=== PATIENT | female | born 1975 | race African-American/Black ===

== ENCOUNTER 2016-11-09 19:52 | Emergency (ER) | payer MEDICARE, MEDICAID ==
[~2016-11-09] VITALS: Ht 172.7 cm; Wt 61.4 kg
[~2016-11-09 19:52] MED LIST: ADVIL200 MG PO; AMBIEN 10MG10 MG PO; AMBIEN5 MG PO; AMITRIPTYLINE H10 M1 PO; AMOXICILLIN 50500 MG PO; AMOXICILLIN875 MG PO; ANTIFUNGAL2% TP; ASMANEX TW0.22 MG/A1; ATARAX 25MG25 MG/TAB PO; ATIVAN 0.50.5 MG/TAB PO; ATIVAN 1MG T1 MG/TAB PO; BACITRACIN TOPIC1 TU TOP; CALTRATE-600 W600 MG PO; CARAFATE 1GM1 G PO; CARAFATE S1 GM/10 ML PO; CATAPRES 0.1MG0.1 MG PO; CEFTIN500 MG PO; CELEBREX 200MG200 MG PO; CHANTIX 1MG1 MG PO; CHANTIX STARTER1 TAB PO; CHANTIX1 MG PO; CIPRO 500MG TA500 MG PO; CLEOCIN HCL300 MG PO; COLACE 100100 MG/CAP PO; CYMBALTA 60MG60 MG PO; DILAUDID 2MG TAB2 MG PO; DILAUDID 4MG TAB4 MG PO; ESTROVEN PO; EXALGO8 MG PO; EXCEDRIN1 TAB PO; Estroven PO; FERROUS SULFAT325 MG PO; FLEXERIL 1010 MG/TAB PO; FLEXERIL10 MG PO; HCTZ12.5TAB PO; HYDROMORPHONE HY8 MG PO; IBU800 M1 PO; IRON325 M1 PO; KLOR-CON 1010 MEQ PO; LASIX 20MG TABL20 MG PO; LASIX 40MG TABL40 MG PO; LEVOTHYROXINE0.05 MG PO; LIORESAL 1010 MG/TAB PO; LORTAB 5/500 501 TAB PO; LYRICA; LYRICA 75MG CAP75 MG PO; LYRICA225 MG PO; MECLIZINE25 MG PO; MILLIPRED DP5 MG; MULTIPLE VITAMI1 TA3 PO; MULTIVITAMIN1 CTB PO; MVI; NAPROSYN500 MG PO; NEURONTIN300 MG/CAP PO; NEURONTIN600 MG/TAB PO; NICODERM C21 MG/PATC TOP; NO HOME MEDICATIONS; NORCO 325 MG-51 TAB PO; NUCENTA PO; OPANA ER10 MG PO; OPANA ER30 MG PO; OPANA ER5 MG PO; OPANA5 MG PO; OXYCODONE HCL40 MG PO; OXYCODONE HCL5 MG PO; OXYCONTIN 20MG20 MG PO; OXYCONTIN30 MG PO; PEN-VEE K500 MG PO; PERCOCET 325 MG1 TA2 PO; PERCOCET 325 MG1 TA3 PO; PERCOCET 325 MG1 TAB PO; PERCOCET 500 MG1 TAB PO; PHENERGAN 25 TA25 MG PO; PHENERGAN25 MG RC; PREDNISONE20 MG PO; PRILOSEC; PRILOSEC 20MG20 MG PO; PROAIR HFA0.09 MG/AC IH; PROMETHAZINE; PROMETHAZINE12.5 M5 PO; PROTONIX 40MG T40 MG PO; REGLAN 10MG10 MG/TAB PO; REMERON30 MG PO; ROXICODONE 55 MG/TAB PO; SYNTHROID0.075 MG/T PO; THERAGRAN1 TA1 PO; TRAMADOL; TRAMADOL50 MG PO; TYLENOL 325MG325 MG PO; ULTRAM 50MG TAB50 MG; ULTRAM 50MG TAB50 MG PO; ULTRAM100 MG PO; UNABLE; VICODIN 5/5001 UDTAB PO; VISTARIL 2525 MG/CAP PO; VITAMIN C BUFF500 MG PO; VITAMIN C500 MG PO; VITAMIN D1000 IU PO; ZANAFLEX 4MG TAB4 MG PO; ZOFRAN 4MG T4 MG/TAB PO; ZOFRAN ODT4 MG PO; ZOFRAN4 M1 PO; ZOFRAN8 MG PO; ZOLOFT 50MG50 MG PO; [UNRECOGNIZED DRUG - REMARK]; [UNRECOGNIZED DRUG - REMARK]
[2016-11-09 20:08] VITALS: BP 121/56; TEMP 98.9
[2016-11-09] MEDS ORDERED: MOBIC15 MG PO (22:04)
[2016-11-09 22:30] VITALS: PULSE 104
[2017-02-18] MEDS ORDERED: LASIX 20MG TABL20 MG PO (07:36)
[2017-02-18] MEDS ORDERED: FERRO-TIME325 MG PO (07:36)
[2017-02-18] MEDS ORDERED: K-DUR 10 MEQ T10 MEQ PO (07:37)
[2017-02-18] MEDS ORDERED: COUMADIN 5MG5 MG/TAB PO (07:39)
[2017-02-18] MEDS ORDERED: AMITRIPTYLINE H10 M1 PO (07:40)
[2017-02-18] MEDS ORDERED: PHENERGAN 25 TA25 MG PO (07:42)
[2017-02-18] MEDS ORDERED: OPANA ER10 MG PO (07:43)
== END 2016-11-09 22:30 | disposition home or self-care (01) ==
LOC: COL.ER 19:52
DX: G90.523 Complex regional pain syndrome I of lower limb, bilateral (principal)
CPT/HCPCS: J2550

== ENCOUNTER 2017-02-05 14:44 | Emergency (ER) | payer MEDICARE, MEDICAID ==
[~2017-02-05] VITALS: Ht 172.7 cm; Wt 56.7 kg
[~2017-02-05 14:44] MED LIST changes: +MOBIC15 MG PO
[2017-02-05 16:13] LABS: BASO # 0.1 (0.0-0.2); BASO % 0.4 % (0.0-2.0); EOS # 0.1 (0.0-0.7); EOS % 0.8 % (0-4.0); GRAN # 8.2 (1.4-6.5); GRAN % 69.8 % (42.2-75.2); LYMPH # 2.8 (1.2-3.4); LYMPH % 23.8 % (20.0-51.0); MEAN CELL VOLUME 80 fl (80.0-100.0); MEAN CORPUSCULAR HGB CONC 29 g/dl (33.0-37.0); MEAN PLATELET VOLUME 10.2 fl (7.4-10.4); MONO # 0.6 (0.1-0.6); MONO % 4.7 % (1.7-9.3); PLATELET COUNT 400 K/mm3 (130-400); RED BLOOD COUNT 3.73 M/mm3 (4.10-5.30); REDCELL DISTRIBUTION WIDTH-CV 21.1 % (11.5-14.5); WHITE BLOOD COUNT 11.7 K/mm3 (4.8-10.8)
[2017-02-05 16:20] LABS: HEMATOCRIT 29.9 % (37.0-47.0); HEMOGLOBIN 8.7 g/dl (12.5-16.0); MEAN CORPUSCULAR HEMOGLOBIN 23 pg (27.0-31.0)
[2017-02-05 16:27] LABS: ADJUSTED CALCIUM 9.1 mg/dL (8.4-10.2); ALANINE AMINOTRANSFERASE 118 U/L (9-52); ALBUMIN 3.6 gm/dL (3.5-5.0); ALKALINE PHOSPHATASE 677 U/L (50-136); ANION GAP 13 mmol/L (7-16); BILIRUBIN,TOTAL 0.7 mg/dL (0.0-1.0); BLOOD UREA NITROGEN 22 mg/dL (7-17); CALCIUM 8.8 mg/dL (8.4-10.2); CARBON DIOXIDE 21 mmol/L (22-30); CHLORIDE 99 mmol/L (98-107); GLUCOSE 126 mg/dL (74-106); SODIUM 133 mmol/L (137-145); TOTAL PROTEIN 8.5 gm/dL (6.4-8.2)
[2017-02-05 16:29] LABS: INR 1.1 (0.8-3.0); PROTHROMBIN TIME 11.8 SECONDS (9.7-12.8)
[2017-02-05 16:31] LABS: PARTIAL THROMBOPLASTIN TIME 27.5 SECONDS (26.0-37.0)
[2017-02-05 16:33] LABS: PH 5 (5-8); SQUAMOUS EPITHELIAL 0-2 /hpf; URINE APPEARANCE Clear; URINE BACTERIA Rare /hpf; URINE BILIRUBIN Negative (NEGATIVE); URINE BLOOD 3+ (NEGATIVE); URINE COLOR Straw; URINE GLUCOSE Negative (NEGATIVE); URINE KETONE Negative (NEGATIVE); URINE UROBILINOGEN Negative (NEGATIVE)
[2017-02-05 16:41] LABS: AMPHETAMINE URINE NEGATIVE; BARBITURATES URINE NEGATIVE; BENZODIAZEPINES URINE NEGATIVE; BUPRENORPHINE URINE NEGATIVE; METHADONE URINE NEGATIVE; OPIATES URINE NEGATIVE; OXYCODONE URINE POSITIVE; PHENCYCLIDINE URINE NEGATIVE; PROPOXYPHENE URINE NEGATIVE; THC CANNABINOIDS URINE NEGATIVE
[2017-02-05 16:56] VITALS: BP 103/65
[2017-02-05 17:00] LABS: ERYTHROCYTE SEDIMENTATION RATE > 140 mm/hr (0-20)
[2017-02-05 17:44] VITALS: PULSE 110; TEMP 97.9
[2017-02-18] MEDS ORDERED: FERRO-TIME325 MG PO (07:36)
[2017-02-18] MEDS ORDERED: LASIX 20MG TABL20 MG PO (07:36)
[2017-02-18] MEDS ORDERED: K-DUR 10 MEQ T10 MEQ PO (07:37)
[2017-02-18] MEDS ORDERED: COUMADIN 5MG5 MG/TAB PO (07:39)
[2017-02-18] MEDS ORDERED: AMITRIPTYLINE H10 M1 PO (07:40)
[2017-02-18] MEDS ORDERED: PHENERGAN 25 TA25 MG PO (07:42)
[2017-02-18] MEDS ORDERED: OPANA ER10 MG PO (07:43)
== END 2017-02-05 17:49 | disposition home or self-care (01) ==
LOC: COL.ER 14:44
PROVIDERS: Nurse Practitioner
DX: I77.6 Arteritis, unspecified (principal); Z53.21 Procedure and treatment not carried out due to patient leaving prior to being seen by health care provider; D69.2 Other nonthrombocytopenic purpura; F17.210 Nicotine dependence, cigarettes, uncomplicated
CPT/HCPCS: J1170; J7030

== ENCOUNTER 2017-02-11 10:07 | Emergency (ER) | payer MEDICARE, MEDICAID ==
[~2017-02-11] VITALS: Ht 172.7 cm; Wt 56.4 kg
[2017-02-11 11:16] LABS: BASO % 0.3 % (0.0-2.0); EOS # 0.1 (0.0-0.7); EOS % 0.8 % (0-4.0); GRAN # 9.1 (1.4-6.5); LYMPH # 2.5 (1.2-3.4); LYMPH % 20.1 % (20.0-51.0); MEAN CELL VOLUME 83 fl (80.0-100.0); MEAN CORPUSCULAR HGB CONC 29 g/dl (33.0-37.0); MEAN PLATELET VOLUME 9.2 fl (7.4-10.4); MONO # 0.7 (0.1-0.6); MONO % 5.2 % (1.7-9.3); PLATELET COUNT 397 K/mm3 (130-400); RED BLOOD COUNT 2.99 M/mm3 (4.10-5.30); REDCELL DISTRIBUTION WIDTH-CV 22.9 % (11.5-14.5); WHITE BLOOD COUNT 12.4 K/mm3 (4.8-10.8)
[2017-02-11 11:26] LABS: HEMATOCRIT 24.7 % (37.0-47.0); HEMOGLOBIN 7.1 g/dl (12.5-16.0); MEAN CORPUSCULAR HEMOGLOBIN 24 pg (27.0-31.0)
[2017-02-11 11:31] LABS: INR 1.2 (0.8-3.0); PROTHROMBIN TIME 13.3 SECONDS (9.7-12.8)
[2017-02-11 11:33] LABS: ADJUSTED CALCIUM 9.6 mg/dL (8.4-10.2); ALBUMIN 3.3 gm/dL (3.5-5.0); BILIRUBIN,TOTAL 0.6 mg/dL (0.0-1.0); CREATININE, serum 0.77 mg/dL (0.52-1.25); MAGNESIUM 1.5 mg/dL (1.6-2.3); PARTIAL THROMBOPLASTIN TIME 33.4 SECONDS (26.0-37.0); PHOSPHOROUS 5.5 mg/dL (2.5-4.5); POTASSIUM 3.9 mmol/L (3.4-5.0); TOTAL PROTEIN 8.1 gm/dL (6.4-8.2)
[2017-02-11 12:08] LABS: ERYTHROCYTE SEDIMENTATION RATE 37 mm/hr (0-20)
[2017-02-11 12:16] LABS: C-REACTIVE PROTEIN 19.5 mg/dL (0.0-0.9)
[2017-02-11 12:20] VITALS: BP 116/64; PULSE 132; TEMP 98.8
[2017-02-11 12:23] LABS: AMPHETAMINE URINE NEGATIVE; BARBITURATES URINE NEGATIVE; BENZODIAZEPINES URINE NEGATIVE; BUPRENORPHINE URINE NEGATIVE; METHADONE URINE NEGATIVE; OPIATES URINE NEGATIVE; OXYCODONE URINE POSITIVE; PHENCYCLIDINE URINE NEGATIVE; PROPOXYPHENE URINE NEGATIVE; THC CANNABINOIDS URINE NEGATIVE
[2017-02-11 13:32] LABS: URINE APPEARANCE Hazy; URINE COLOR Yellow
[2017-02-11 13:33] LABS: PH 5 (5-8); URINE BILIRUBIN Negative (NEGATIVE); URINE BLOOD 3+ (NEGATIVE); URINE GLUCOSE Negative (NEGATIVE); URINE KETONE Negative (NEGATIVE); URINE UROBILINOGEN Negative (NEGATIVE)
[2017-02-11 13:34] LABS: SQUAMOUS EPITHELIAL 0-2 /hpf; URINE BACTERIA Occasional /hpf
[2017-02-18] MEDS ORDERED: LASIX 20MG TABL20 MG PO (07:36)
[2017-02-18] MEDS ORDERED: FERRO-TIME325 MG PO (07:36)
[2017-02-18] MEDS ORDERED: K-DUR 10 MEQ T10 MEQ PO (07:37)
[2017-02-18] MEDS ORDERED: COUMADIN 5MG5 MG/TAB PO (07:39)
[2017-02-18] MEDS ORDERED: AMITRIPTYLINE H10 M1 PO (07:40)
[2017-02-18] MEDS ORDERED: PHENERGAN 25 TA25 MG PO (07:42)
[2017-02-18] MEDS ORDERED: OPANA ER10 MG PO (07:43)
== END 2017-02-11 12:24 | disposition left against medical advice (07) ==
LOC: COL.ER 10:07
PROVIDERS: Emergency Medicine
DX: I38 Endocarditis, valve unspecified (principal); Z53.21 Procedure and treatment not carried out due to patient leaving prior to being seen by health care provider; B96.89 Other specified bacterial agents as the cause of diseases classified elsewhere; L02.414 Cutaneous abscess of left upper limb; I77.6 Arteritis, unspecified; L02.413 Cutaneous abscess of right upper limb; R00.0 Tachycardia, unspecified; D64.9 Anemia, unspecified; G89.29 Other chronic pain
CPT/HCPCS: J2185; J7030

== ENCOUNTER 2017-02-11 14:31 | Emergency (ER) | payer MEDICARE, MEDICAID ==
[~2017-02-11] VITALS: Ht 172.7 cm; Wt 55.5 kg
[2017-02-11 14:35] VITALS: TEMP 98.8
[2017-02-11 16:36] VITALS: BP 120/71; PULSE 139
[2017-02-18] MEDS ORDERED: FERRO-TIME325 MG PO (07:36)
[2017-02-18] MEDS ORDERED: LASIX 20MG TABL20 MG PO (07:36)
[2017-02-18] MEDS ORDERED: K-DUR 10 MEQ T10 MEQ PO (07:37)
[2017-02-18] MEDS ORDERED: COUMADIN 5MG5 MG/TAB PO (07:39)
[2017-02-18] MEDS ORDERED: AMITRIPTYLINE H10 M1 PO (07:40)
[2017-02-18] MEDS ORDERED: PHENERGAN 25 TA25 MG PO (07:42)
[2017-02-18] MEDS ORDERED: OPANA ER10 MG PO (07:43)
== END 2017-02-11 16:45 | disposition short-term general hospital (02) ==
LOC: COL.ER 14:31
DX: R78.81 Bacteremia (principal); I77.6 Arteritis, unspecified; R00.0 Tachycardia, unspecified; G89.29 Other chronic pain
CPT/HCPCS: J7030

== ENCOUNTER 2017-02-19 14:47 | Outpatient (RCR) | payer MEDICARE, MEDICAID ==
[2017-02-17 17:00] VITALS: BP 92/55; PULSE 101; TEMP 98.5
[2017-02-17 17:00] LABS: INR 2.1 (0.8-3.0); PROTHROMBIN TIME 24.3 SECONDS (9.7-12.8)
[2017-02-18 07:20] VITALS: BP 92/60; PULSE 107; TEMP 97.6
[2017-02-18 15:22] LABS: INR 4.3 (0.8-3.0)
[2017-02-18 15:26] LABS: PROTHROMBIN TIME 50.4 SECONDS (9.7-12.8)
[2017-02-18 16:33] VITALS: BP 105/78; PULSE 109; TEMP 97.5
[~2017-02-19] VITALS: Ht 172.7 cm; Wt 59.0 kg
[~2017-02-19 14:47] MED LIST changes: +COUMADIN 5MG5 MG/TAB PO; +FERRO-TIME325 MG PO; +K-DUR 10 MEQ T10 MEQ PO
[2017-02-19 15:53] LABS: INR 3.1 (0.8-3.0); PROTHROMBIN TIME 35.7 SECONDS (9.7-12.8)
[2017-02-20 16:28] LABS: PROTHROMBIN TIME 22.8 SECONDS (9.7-12.8)
[2017-02-21 15:54] LABS: PROTHROMBIN TIME 34.5 SECONDS (9.7-12.8)
[2017-02-21 16:15] VITALS: BP 95/56; PULSE 51; TEMP 98.2
[2017-02-22 15:57] VITALS: BP 91/61; PULSE 78; TEMP 97.1
[2017-02-23 16:02] VITALS: BP 105/70; PULSE 87; TEMP 98.1
[2017-02-24 15:10] VITALS: BP 99/62; PULSE 56; TEMP 97.9
[2017-02-25 15:05] VITALS: BP 115/82; PULSE 96; TEMP 97.8
[2017-02-26] MEDS ORDERED: FLEXERIL 1010 MG/TAB PO (09:55)
[2017-02-28 14:39] VITALS: BP 121/75; PULSE 111; TEMP 98.6
[2017-02-28 16:38] LABS: ADJUSTED CALCIUM 9.1 mg/dL (8.4-10.2); BILIRUBIN,TOTAL 0.6 mg/dL (0.0-1.0); CALCIUM 8.3 mg/dL (8.4-10.2); CREATININE, serum 0.67 mg/dL (0.52-1.25); POTASSIUM 3.9 mmol/L (3.4-5.0)
[2017-02-28 16:46] LABS: PROTHROMBIN TIME 153.7 SECONDS (9.7-12.8)
[2017-02-28 16:47] LABS: INR 12.8 (0.8-3.0)
[2017-02-28 17:02] LABS: MEAN CELL VOLUME 80 fl (80.0-100.0); MEAN CORPUSCULAR HGB CONC 31 g/dl (33.0-37.0); MEAN PLATELET VOLUME 9.3 fl (7.4-10.4); PLATELET COUNT 304 K/mm3 (130-400); RED BLOOD COUNT 3.12 M/mm3 (4.10-5.30); REDCELL DISTRIBUTION WIDTH-CV 19.9 % (11.5-14.5); WHITE BLOOD COUNT 10.7 K/mm3 (4.8-10.8)
[2017-02-28 17:09] LABS: HEMATOCRIT 25.1 % (37.0-47.0); HEMOGLOBIN 7.7 g/dl (12.5-16.0); MEAN CORPUSCULAR HEMOGLOBIN 25 pg (27.0-31.0)
[2017-03-01 14:27] LABS: INR 2.4 (0.8-3.0); PROTHROMBIN TIME 26.9 SECONDS (9.7-12.8)
[2017-03-02 14:55] VITALS: BP 92/64; PULSE 109; TEMP 98.2
[2017-03-03 15:19] VITALS: BP 101/63; PULSE 116; TEMP 97.9
[2017-03-04] MEDS ORDERED: ZOFRAN 4MG T4 MG/TAB PO (07:24)
[2017-03-04] MEDS ORDERED: INVANZ INJ1 G/VIAL IV (07:32)
[2017-03-07 15:29] VITALS: BP 104/61; PULSE 118; TEMP 99.2
[2017-03-07 15:36] LABS: MEAN CELL VOLUME 79 fl (80.0-100.0); MEAN CORPUSCULAR HGB CONC 32 g/dl (33.0-37.0); MEAN PLATELET VOLUME 10.3 fl (7.4-10.4); PLATELET COUNT 161 K/mm3 (130-400); RED BLOOD COUNT 2.42 M/mm3 (4.10-5.30); REDCELL DISTRIBUTION WIDTH-CV 21.2 % (11.5-14.5); WHITE BLOOD COUNT 12.8 K/mm3 (4.8-10.8)
[2017-03-07 15:38] LABS: INR 2.9 (0.8-3.0); PROTHROMBIN TIME 32.8 SECONDS (9.7-12.8)
[2017-03-07 15:41] LABS: HEMATOCRIT 19.2 % (37.0-47.0); HEMOGLOBIN 6.1 g/dl (12.5-16.0); MEAN CORPUSCULAR HEMOGLOBIN 25 pg (27.0-31.0)
[2017-03-07 16:14] LABS: ADJUSTED CALCIUM 8.9 mg/dL (8.4-10.2); ALBUMIN 3.4 gm/dL (3.5-5.0); BILIRUBIN,TOTAL 1.4 mg/dL (0.0-1.0); CALCIUM 8.4 mg/dL (8.4-10.2); CREATININE, serum 0.81 mg/dL (0.52-1.25); POTASSIUM 3.8 mmol/L (3.4-5.0); TOTAL PROTEIN 7.6 gm/dL (6.4-8.2)
[2017-03-08] VITALS (10 sets, daily range): BP systolic 96–128; BP diastolic 56–68; PULSE 88–110; TEMP 97.2–98.8
[2017-03-08] MEDS ORDERED: COUMADIN 22.5 MG/TAB PO (17:15)
[2017-03-10 15:50] LABS: INR 2.1 (0.8-3.0); PROTHROMBIN TIME 24.2 SECONDS (9.7-12.8)
[2017-03-10 15:51] VITALS: BP 96/52; PULSE 91; TEMP 98
[2017-03-11 15:50] VITALS: BP 116/79; PULSE 85; TEMP 98.4
[2017-03-13 15:47] VITALS: BP 109/74; PULSE 129; TEMP 97.5
== END 2017-03-29 14:51 | disposition expired ==
LOC: EUO 15:00
PROVIDERS: Emergency Medicine; Internal Medicine; Internal Medicine Cardiovascular Disease; Internal Medicine Infectious Disease
DX: R91.8 Other nonspecific abnormal finding of lung field (principal); Z79.01 Long term (current) use of anticoagulants
CPT/HCPCS: C1751; J1335; J1644; J1650; J7050; P9016

== ENCOUNTER 2017-02-26 07:37 | Emergency (ER) | payer MEDICARE, MEDICAID ==
[~2017-02-26] VITALS: Ht 172.7 cm; Wt 59.1 kg
[2017-02-26 07:45] VITALS: BP 92/60; TEMP 97.5
[2017-02-26 09:12] LABS: BASO # 0.1 (0.0-0.2); BASO % 0.8 % (0.0-2.0); EOS # 0.4 (0.0-0.7); EOS % 3.9 % (0-4.0); GRAN # 7.3 (1.4-6.5); GRAN % 75.4 % (42.2-75.2); LYMPH # 1.5 (1.2-3.4); LYMPH % 14.9 % (20.0-51.0); MEAN CELL VOLUME 80 fl (80.0-100.0); MEAN CORPUSCULAR HGB CONC 31 g/dl (33.0-37.0); MEAN PLATELET VOLUME 8.4 fl (7.4-10.4); MONO # 0.5 (0.1-0.6); MONO % 4.6 % (1.7-9.3); PLATELET COUNT 334 K/mm3 (130-400); RED BLOOD COUNT 3.48 M/mm3 (4.10-5.30); REDCELL DISTRIBUTION WIDTH-CV 19.7 % (11.5-14.5); WHITE BLOOD COUNT 9.7 K/mm3 (4.8-10.8)
[2017-02-26 09:24] LABS: PH 6 (5-8); URINE APPEARANCE Clear; URINE BACTERIA None Seen /hpf; URINE BILIRUBIN Negative (NEGATIVE); URINE BLOOD 3+ (NEGATIVE); URINE COLOR Yellow; URINE GLUCOSE Negative (NEGATIVE); URINE KETONE Negative (NEGATIVE); URINE RBC >50 /hpf; URINE UROBILINOGEN Negative (NEGATIVE)
[2017-02-26 09:24] LABS: C-REACTIVE PROTEIN 3.1 mg/dL (0.0-0.9); CALCIUM 8.9 mg/dL (8.4-10.2); CREATININE, serum 0.59 mg/dL (0.52-1.25); POTASSIUM 4.3 mmol/L (3.4-5.0)
[2017-02-26 09:42] LABS: HEMATOCRIT 27.9 % (37.0-47.0); HEMOGLOBIN 8.5 g/dl (12.5-16.0); MEAN CORPUSCULAR HEMOGLOBIN 24 pg (27.0-31.0)
[2017-02-26] MEDS ORDERED: FLEXERIL 1010 MG/TAB PO (09:55)
[2017-02-26 10:01] LABS: ERYTHROCYTE SEDIMENTATION RATE 93 mm/hr (0-20)
[2017-02-26 10:40] VITALS: PULSE 98
== END 2017-02-26 10:40 | disposition home or self-care (01) ==
LOC: COL.ER 07:37
PROVIDERS: Physician Assistant
DX: M54.5 Low back pain (principal); M62.830 Muscle spasm of back; M47.816 Spondylosis without myelopathy or radiculopathy, lumbar region; Z86.711 Personal history of pulmonary embolism; Z79.01 Long term (current) use of anticoagulants

== ENCOUNTER 2017-02-28 17:46 | Emergency (ER) | payer MEDICARE, MEDICAID ==
[~2017-02-28] VITALS: Ht 172.7 cm; Wt 57.7 kg
[~2017-02-28 17:46] MED LIST changes: -COUMADIN 22.5 MG/TAB PO; -INVANZ INJ1 G/VIAL IV
[2017-02-28 17:50] VITALS: BP 99/64; TEMP 99.3
[2017-02-28 19:18] VITALS: PULSE 108
== END 2017-02-28 19:19 | disposition home or self-care (01) ==
LOC: COL.ER 17:46
DX: R79.1 Abnormal coagulation profile (principal); T45.515A Adverse effect of anticoagulants, initial encounter; I38 Endocarditis, valve unspecified; R53.1 Weakness; R42 Dizziness and giddiness; F32.9 Major depressive disorder, single episode, unspecified; G43.909 Migraine, unspecified, not intractable, without status migrainosus
CPT/HCPCS: A6207; A6212; G0463

== ENCOUNTER → 2017-02-28 | Outpatient (CLI) | payer MEDICARE, MEDICAID ==
[~2017-02-28] MED LIST changes: +COUMADIN 22.5 MG/TAB PO; +INVANZ INJ1 G/VIAL IV
== END ==
LOC: WCC 09:48
DX: L02.416 Cutaneous abscess of left lower limb (principal); L02.414 Cutaneous abscess of left upper limb; R60.0 Localized edema; I82.409 Acute embolism and thrombosis of unspecified deep veins of unspecified lower extremity; F19.10 Other psychoactive substance abuse, uncomplicated; Z76.5 Malingerer [conscious simulation]
CPT/HCPCS: 17717; 27517; A6207; A6212; G0463

== ENCOUNTER 2017-03-03 00:09 | Emergency (ER) | payer MEDICARE, MEDICAID ==
[~2017-03-03] VITALS: Ht 172.7 cm; Wt 59.1 kg
[2017-03-03 00:14] VITALS: BP 125/80; TEMP 98
[2017-03-03 00:56] VITALS: PULSE 104
[2017-03-04] MEDS ORDERED: ZOFRAN 4MG T4 MG/TAB PO (07:24)
[2017-03-04] MEDS ORDERED: INVANZ INJ1 G/VIAL IV (07:32)
== END 2017-03-03 00:56 | disposition home or self-care (01) ==
LOC: COL.ER 00:09
DX: R51 Headache (principal); F17.210 Nicotine dependence, cigarettes, uncomplicated
CPT/HCPCS: J1170

== ENCOUNTER 2017-03-04 05:42 | Emergency (ER) | payer MEDICARE, MEDICAID ==
[~2017-03-04] VITALS: Ht 172.7 cm; Wt 59.1 kg
[2017-03-04 07:14] VITALS: TEMP 100.1
[2017-03-04] MEDS ORDERED: ZOFRAN 4MG T4 MG/TAB PO (07:24)
[2017-03-04] MEDS ORDERED: INVANZ INJ1 G/VIAL IV (07:32)
[2017-03-04 07:57] LABS: BASO # 0.1 (0.0-0.2); BASO % 0.6 % (0.0-2.0); EOS # 0.7 (0.0-0.7); EOS % 5.3 % (0-4.0); GRAN # 9.8 (1.4-6.5); GRAN % 72.6 % (42.2-75.2); LYMPH # 2.2 (1.2-3.4); LYMPH % 16.1 % (20.0-51.0); MEAN CELL VOLUME 82 fl (80.0-100.0); MEAN CORPUSCULAR HGB CONC 31 g/dl (33.0-37.0); MEAN PLATELET VOLUME 9.8 fl (7.4-10.4); MONO # 0.6 (0.1-0.6); MONO % 4.7 % (1.7-9.3); PLATELET COUNT 254 K/mm3 (130-400); RED BLOOD COUNT 2.97 M/mm3 (4.10-5.30); REDCELL DISTRIBUTION WIDTH-CV 21.1 % (11.5-14.5); WHITE BLOOD COUNT 13.5 K/mm3 (4.8-10.8)
[2017-03-04 08:01] LABS: HEMATOCRIT 24.2 % (37.0-47.0); HEMOGLOBIN 7.4 g/dl (12.5-16.0); INR 3.7 (0.8-3.0); MEAN CORPUSCULAR HEMOGLOBIN 25 pg (27.0-31.0); PROTHROMBIN TIME 42.7 SECONDS (9.7-12.8)
[2017-03-04 08:04] LABS: PARTIAL THROMBOPLASTIN TIME 49.3 SECONDS (26.0-37.0)
[2017-03-04 08:12] LABS: ADJUSTED CALCIUM 9.1 mg/dL (8.4-10.2); ALBUMIN 3.5 gm/dL (3.5-5.0); BILIRUBIN,TOTAL 0.7 mg/dL (0.0-1.0); C-REACTIVE PROTEIN 4.7 mg/dL (0.0-0.9); CALCIUM 8.7 mg/dL (8.4-10.2); CREATININE, serum 1.04 mg/dL (0.52-1.25); POTASSIUM 4.2 mmol/L (3.4-5.0); TOTAL PROTEIN 7.7 gm/dL (6.4-8.2)
[2017-03-04 08:33] LABS: ERYTHROCYTE SEDIMENTATION RATE 88 mm/hr (0-20)
[2017-03-04 09:54] VITALS: BP 102/70; PULSE 130
== END 2017-03-04 10:03 | disposition short-term general hospital (02) ==
LOC: COL.ER 05:42
PROVIDERS: Emergency Medicine
DX: I38 Endocarditis, valve unspecified (principal); R50.9 Fever, unspecified; R21 Rash and other nonspecific skin eruption; G43.909 Migraine, unspecified, not intractable, without status migrainosus; Z85.840 Personal history of malignant neoplasm of eye; F17.210 Nicotine dependence, cigarettes, uncomplicated; D72.829 Elevated white blood cell count, unspecified
CPT/HCPCS: J1170; J7030

== ENCOUNTER → 2017-03-07 | Outpatient (CLI) | payer MEDICARE, MEDICAID ==
[~2017-03-07] MED LIST changes: +COUMADIN 22.5 MG/TAB PO; +INVANZ INJ1 G/VIAL IV
== END ==
LOC: WCC 09:22
DX: L02.91 Cutaneous abscess, unspecified (principal); Z76.5 Malingerer [conscious simulation]
CPT/HCPCS: 13973; 17717; A6199; A6212; G0463

== ENCOUNTER 2017-03-08 13:03 | Emergency (ER) | payer MEDICARE, MEDICAID ==
[~2017-03-08] VITALS: Ht 172.7 cm; Wt 59.1 kg
[~2017-03-08 13:03] MED LIST changes: -COUMADIN 22.5 MG/TAB PO
[2017-03-08 13:06] VITALS: BP 132/73; PULSE 126; TEMP 98.1
[2017-03-08 15:01] LABS: HEMATOCRIT 20.7 % (37.0-47.0); HEMOGLOBIN 6.6 g/dl (12.5-16.0)
[2017-03-08] MEDS ORDERED: COUMADIN 22.5 MG/TAB PO (17:15)
== END 2017-03-08 16:10 | disposition home or self-care (01) ==
LOC: COL.ER 13:03
PROVIDERS: Emergency Medicine
DX: D53.9 Nutritional anemia, unspecified (principal); F17.210 Nicotine dependence, cigarettes, uncomplicated; Z85.828 Personal history of other malignant neoplasm of skin; Z79.01 Long term (current) use of anticoagulants

== ENCOUNTER 2017-03-14 20:01 | Emergency (ER) | payer MEDICARE, MEDICAID ==
[~2017-03-14] VITALS: Ht 170.2 cm; Wt 56.8 kg
[~2017-03-14 20:01] MED LIST changes: +COUMADIN 22.5 MG/TAB PO
[2017-03-14 20:06] VITALS: TEMP 97.2
[2017-03-14 20:41] LABS: BASO # 0.1 (0.0-0.2); BASO % 0.3 % (0.0-2.0); EOS # 0.2 (0.0-0.7); EOS % 1.4 % (0-4.0); GRAN # 13.8 (1.4-6.5); LYMPH # 1.2 (1.2-3.4); LYMPH % 7.7 % (20.0-51.0); MEAN CELL VOLUME 83 fl (80.0-100.0); MEAN CORPUSCULAR HGB CONC 32 g/dl (33.0-37.0); MONO # 0.8 (0.1-0.6); MONO % 4.6 % (1.7-9.3); PLATELET COUNT 72 K/mm3 (130-400); RED BLOOD COUNT 2.78 M/mm3 (4.10-5.30); WHITE BLOOD COUNT 16.2 K/mm3 (4.8-10.8)
[2017-03-14 20:42] LABS: HEMATOCRIT 23.1 % (37.0-47.0); HEMOGLOBIN 7.3 g/dl (12.5-16.0); MEAN CORPUSCULAR HEMOGLOBIN 26 pg (27.0-31.0)
[2017-03-14 20:50] LABS: ADJUSTED CALCIUM 9.2 mg/dL (8.4-10.2); ALBUMIN 3.1 gm/dL (3.5-5.0); BILIRUBIN,TOTAL 2.3 mg/dL (0.0-1.0); CALCIUM 8.5 mg/dL (8.4-10.2); CREATININE, serum 1.3 mg/dL (0.52-1.25); POTASSIUM 3.7 mmol/L (3.4-5.0); TOTAL PROTEIN 7.5 gm/dL (6.4-8.2)
[2017-03-14 21:11] LABS: ERYTHROCYTE SEDIMENTATION RATE 46 mm/hr (0-20)
[2017-03-14 21:24] VITALS: BP 112/80; PULSE 88
== END 2017-03-14 21:25 | disposition home or self-care (01) ==
LOC: COL.ER 20:01
PROVIDERS: Family Medicine
DX: I38 Endocarditis, valve unspecified (principal); D69.49 Other primary thrombocytopenia; E03.9 Hypothyroidism, unspecified; F32.9 Major depressive disorder, single episode, unspecified; F41.0 Panic disorder [episodic paroxysmal anxiety]; F17.210 Nicotine dependence, cigarettes, uncomplicated; Z79.01 Long term (current) use of anticoagulants; Z85.89 Personal history of malignant neoplasm of other organs and systems; Z98.890 Other specified postprocedural states
CPT/HCPCS: J1335

== ENCOUNTER 2017-03-17 03:13 | Emergency (ER) | payer MEDICARE, MEDICAID ==
[~2017-03-17] VITALS: Ht 172.7 cm; Wt 59.1 kg
[2017-03-17 04:16] LABS: MEAN CELL VOLUME 85 fl (80.0-100.0); MEAN CORPUSCULAR HGB CONC 35 g/dl (33.0-37.0); RED BLOOD COUNT 1.89 M/mm3 (4.10-5.30); REDCELL DISTRIBUTION WIDTH-CV 23.1 % (11.5-14.5)
[2017-03-17 04:23] LABS: HEMATOCRIT 16.1 % (37.0-47.0); MEAN CORPUSCULAR HEMOGLOBIN 30 pg (27.0-31.0)
[2017-03-17 04:25] LABS: HEMOGLOBIN 5.6 g/dl (12.5-16.0); PLATELET COUNT 46 K/mm3 (130-400); WHITE BLOOD COUNT 31.9 K/mm3 (4.8-10.8)
[2017-03-17 04:26] LABS: ADD PATHOLOGY DIFF REVIEW NO
[2017-03-17 05:02] LABS: ADJUSTED CALCIUM 8.8 mg/dL (8.4-10.2); ALBUMIN 3.7 gm/dL (3.5-5.0); BILIRUBIN,TOTAL 6.8 mg/dL (0.0-1.0); CALCIUM 8.6 mg/dL (8.4-10.2); CREATININE, serum 1.33 mg/dL (0.52-1.25); POTASSIUM 5.3 mmol/L (3.4-5.0)
[2017-03-17 05:15] LABS: BAND 28 % (0-10); EOSINOPHIL 1 % (0-4); NEUTROPHILS 63 % (42.0-75.2); PLATELET ESTIMATE DECREASED (NORMAL); TOTAL CELLS COUNTED 102
[2017-03-17 05:16] LABS: ANISOCYTOSIS 3+
[2017-03-17 05:17] LABS: SCHISTOCYTES 1+
[2017-03-17 05:21] LABS: INR 5.3 (0.8-3.0)
[2017-03-17 06:05] VITALS: BP 135/89; PULSE 118; TEMP 99.4
[2017-03-17 06:10] VITALS: BP 137/96; BP 140/94; PULSE 117; TEMP 97.8
[2017-03-17 06:15] VITALS: BP 137/96; PULSE 118
[2017-03-17 06:20] VITALS: BP 139/96; PULSE 117; TEMP 98
[2017-03-17 09:35] VITALS: BP 139/102; PULSE 108; TEMP 97.1
== END 2017-03-17 09:35 | disposition left against medical advice (07) ==
LOC: COL.ER 03:13
PROVIDERS: Emergency Medicine
DX: I38 Endocarditis, valve unspecified (principal); D69.2 Other nonthrombocytopenic purpura; R01.1 Cardiac murmur, unspecified; D64.9 Anemia, unspecified; G89.29 Other chronic pain
CPT/HCPCS: J1170; J1335; J2405; J3370; J7030; J7050; P9016

== ENCOUNTER 2017-03-17 17:39 | Emergency (ER) | payer MEDICARE, MEDICAID ==
[~2017-03-17] VITALS: Ht 172.7 cm; Wt 56.8 kg
[2017-03-17 17:43] VITALS: TEMP 98.5
[2017-03-17 18:42] LABS: INR 4.9 (0.8-3.0); MEAN CELL VOLUME 88 fl (80.0-100.0); MEAN CORPUSCULAR HGB CONC 35 g/dl (33.0-37.0); RED BLOOD COUNT 1.86 M/mm3 (4.10-5.30); REDCELL DISTRIBUTION WIDTH-CV 21.1 % (11.5-14.5)
[2017-03-17 18:47] LABS: ADJUSTED CALCIUM 8.8 mg/dL (8.4-10.2); ALANINE AMINOTRANSFERASE 60 U/L (9-52); ALBUMIN 3.4 gm/dL (3.5-5.0); ALKALINE PHOSPHATASE 119 U/L (50-136); ANION GAP 19 mmol/L (7-16); BILIRUBIN,TOTAL 11.9 mg/dL (0.0-1.0); BLOOD UREA NITROGEN 48 mg/dL (7-17); CALCIUM 8.3 mg/dL (8.4-10.2); CHLORIDE 95 mmol/L (98-107); CREATININE, serum 1.19 mg/dL (0.52-1.25); GLUCOSE 115 mg/dL (74-106); SODIUM 126 mmol/L (137-145); TOTAL PROTEIN 7.7 gm/dL (6.4-8.2)
[2017-03-17 18:48] LABS: WHITE BLOOD COUNT 34.9 K/mm3 (4.8-10.8)
[2017-03-17 18:49] LABS: HEMATOCRIT 16.3 % (37.0-47.0); HEMOGLOBIN 5.7 g/dl (12.5-16.0); MEAN CORPUSCULAR HEMOGLOBIN 31 pg (27.0-31.0); PLATELET COUNT 33 K/mm3 (130-400)
[2017-03-17 18:50] LABS: ADD PATHOLOGY DIFF REVIEW NO
[2017-03-17 18:51] LABS: PROTHROMBIN TIME 57.4 SECONDS (9.7-12.8)
[2017-03-17 18:53] LABS: CARBON DIOXIDE 12 mmol/L (22-30)
[2017-03-17 18:55] LABS: POTASSIUM 5.3 mmol/L (3.4-5.0)
[2017-03-17 19:01] LABS: ACANTHOCYTES 1+; ANISOCYTOSIS 2+; BAND 2 % (0-10); EOSINOPHIL 1 % (0-4); METAMYELOCYTE 1 % (0-0); NEUTROPHILS 88 % (42.0-75.2); TOTAL CELLS COUNTED 100
[2017-03-17 19:02] LABS: POLYCHROMASIA 2+; SPHEROCYTE 1+
[2017-03-17 19:14] LABS: ACETAMINOPHEN < 10 ug/mL (10-30)
[2017-03-17 19:25] VITALS: BP 136/101; PULSE 105
== END 2017-03-17 19:45 | disposition short-term general hospital (02) ==
LOC: COL.ER 17:39
PROVIDERS: Emergency Medicine
DX: A41.9 Sepsis, unspecified organism (principal); I38 Endocarditis, valve unspecified; R65.20 Severe sepsis without septic shock; J18.9 Pneumonia, unspecified organism; E80.6 Other disorders of bilirubin metabolism; D69.6 Thrombocytopenia, unspecified; D69.2 Other nonthrombocytopenic purpura
CPT/HCPCS: J2543; J3370; J7030; J7050